=== PATIENT | male | born 1965 | race Caucasian/White ===

== ENCOUNTER 2021-12-21 19:57 | Emergency (ER) | payer OTHER, SELFPAY ==
[2021-12-21 20:01] VITALS: BP 161/86; PULSE 82; RESP 26; TEMP 36.7; O2SAT 100; BMI 30.1
--- NOTE | 2021-12-21 20:08 | DI.RAD.S_ITS ---
PROCEDURE: XR CHEST 1V INDICATIONS: chest pain TECHNIQUE: One view of the chest was acquired. COMPARISON: None. FINDINGS: Surgical changes and devices: None. Lungs and pleura: Left basilar opacity may be infiltrate or atelectasis. No pleural effusions or pneumothorax. Mediastinum: Mediastinal contours appear normal. Heart size is normal. Bones and chest wall: No suspicious bony lesions. Overlying soft tissues appear unremarkable. IMPRESSION: Left basilar infiltrate or atelectasis. Dictated by: Supriya Bowles M.D. on 12/21/2021 at 21:14 Approved by: Supriya Bowles M.D. on 12/21/2021 at 21:15
[2021-12-21 20:59] LABS: COVID19 -Nasal RAPID Negative (Negative)
[2021-12-21 21:13] LABS: Add Manual Diff / Slide Review NO; Basophils Absolute Auto 0 /uL (0-100); Basophils Percent Auto 0.5 % (0-2); Eosinophils Absolute Auto 0 /uL (0-450); Eosinophils Percent Auto 0.2 % (2-4); Hematocrit 47.6 % (41-53); Hemoglobin 16.7 g/dL (13.5-17.5); Lymphocytes Absolute Auto 1400 /uL (1100-4500); Lymphocytes Percent Auto 14.6 % (25-40); Mean Corpuscular HGB Conc 35.1 % (30-36); Mean Corpuscular Hemoglobin 31.5 PG (26-34); Mean Corpuscular Volume 89.6 fL (80-100); Monocytes Absolute Auto 500 /uL (0-900); Monocytes Percent Auto 4.9 % (3-14); Neutrophils Absolute Auto 7900 /uL (1500-7000); Neutrophils Percent Auto 79.8 % (50-75); Platelet Count 312 X10^3/uL (150-400); Red Blood Cell Count 5.31 X10^6/uL (4.5-5.9); White Blood Cell Count 9.9 X10^3/uL (4.5-11.0)
[2021-12-21 21:15] LABS: Alanine Aminotransferase 45 IU/L (<50); Albumin 4.9 g/dL (3.5-5.0); Albumin Globulin Ratio 1.4 (1.0-2.8); Alkaline Phosphatase 70 U/L (38-126); Aspartate Aminotransferase 41 IU/L (17-59); BUN Creatinine Ratio 12.1 (6-22); Bilirubin Total 0.8 mg/dL (0.2-1.3); Blood Urea Nitrogen 8 mg/dL (9-20); Calcium 9.3 mg/dL (8.4-10.2); Carbon Dioxide 23 mmol/L (22-32); Chloride 104 mmol/L (98-107); Creatine Kinase 80 U/L (55-170); Estimated Glomerular Filt Rate > 60.0 mL/min (>60); Globulin 3.6 g/dL (1.7-4.1); Glucose 127 mg/dL (70-100); HEMOLYSIS < 15 (0-50); Lipase 68 U/L (23-300); Magnesium 1.4 mg/dL (1.6-2.3); Potassium 3.6 mmol/L (3.4-5.1); Sodium 143 mmol/L (137-145); Total Protein 8.5 g/dL (6.3-8.2)
[2021-12-21 21:27] LABS: Troponin I < 0.012 ng/mL (0.01-0.034)
[2021-12-21 21:40] VITALS: BP 144/84; PULSE 100; RESP 18; O2SAT 93
[2021-12-21 22:17] VITALS: BP 142/78; PULSE 98; RESP 18; O2SAT 94
--- NOTE | 2021-12-21 22:27 | ED_ITS ---
HPI - Nausea/Vomiting/Diarrhea General Chief complaint: Nausea/Vomiting/Diarrhea Stated complaint: N/V/D Time Seen by Provider: 12/21/21 22:27 Source: patient Mode of arrival: EMS History of Present Illness HPI Narrative: 56-year-old gentleman with a history of fibromyalgia, anxiety, depression, panic, diabetes, hypertension, hyperlipidemia who notes that for the last 1-2 he has been feeling fatigued and ?under the weather?. He has noticed increasing nausea and has had a couple episodes of emesis. Was feeling weak and felt better lying prone on the bathroom floor. His insisted that he come to the ER for further evaluation. He has had similar episodes in the past he has had a negative cardiac workup in the past. He reports increasing stressors and overall anxiety. He has recently seen his primary care physician and blood pressure medications were slightly altered and he continues with hydrochlorothiazide in the morning and losartan as a new medication in the evening both of which seem to be doing fairly well. He reports no headaches, fevers, palpitations, chest pain or dyspnea. Related Data Previous Rx's Medication Instructions Recorded lorazepam 0.5 mg tablet (Ativan) 0.5 mg PO DAILY PRN #14 tab 12/22/21 ondansetron 4 mg disintegrating 4 mg PO Q8H PRN #20 tab 12/22/21 tablet Allergies Allergy/AdvReac Type Severity Reaction Status Date / Time Penicillins Allergy Verified 12/21/21 20:01 Review of Systems Review of Systems Narrative: Remainder of complete review of systems is otherwise unremarkable except for that included in the HPI. Patient History Medical History (Updated 12/22/21 @ 01:33 by Gabriela Leahy MD) Anxiety Depression Diabetes Fibromyalgia Hyperlipidemia Hypertension Social History Smoking Status: Former smoker Smoking Status: Former smoker alcohol intake frequency: 0-2 drinks per day Substance Use Type: does not use Exam Initial Vital Signs Initial Vital Signs: Vital Signs Temperature 98.0 F 12/21/21 20:01 Pulse Rate 82 12/21/21 20:01 Respiratory Rate 26 H 12/21/21 20:01 Blood Pressure 161/86 H 12/21/21 20:01 Pulse Oximetry 100 12/21/21 20:01 General: Mildly ill-appearing but in no acute distress. Able to give a complete and coherent history. HEENT: Moist mucous membranes, normal sclera with reactive pupils, Neck: No JVD, supple Respiratory: Lungs are clear to auscultation, no wheezing no rales no rhonchi. Full and symmetrical air movement Cardiac: Regular rate and rhythm no murmurs no bruits Abdomen: Soft, nontender, good bowel tones, no flank pain Skin: Warm, slightly flushed, no rashes Neurologic: Grossly neurologically intact with no obvious asymmetries or abnormalities Extremities: No trauma, well perfused Psych: Cooperative, appropriate insight and affect Course Orders Ordered: ED Orders 12/21/21 20:08 XR chest 1V Stat Complete Blood Count AUTO DIFF Stat Comprehensive Metabolic Panel Stat Lipase Stat Magnesium Stat Troponin & CK Cardiac Panel Stat EKG-12 Lead Stat 12/21/21 20:20 COVID19 -Nasal swab/Pre-Proc Stat 12/21/21 22:30 Ammonia (NH3) Stat Vital Signs Vital signs: Vital Signs - 8 hr 12/21/21 20:01 12/21/21 21:40 12/21/21 22:17 Temperature 98.0 F Pulse Rate 82 100 H 98 H Respiratory Rate 26 H 18 18 Blood Pressure 161/86 H 144/84 H 142/78 H Pulse Oximetry 100 93 94 12/21/21 22:30 Temperature Pulse Rate 98 H Respiratory Rate 17 Blood Pressure 145/88 H Pulse Oximetry 92 MDM - Nausea/Vomiting/Diarrhea Lab Data Result diagrams: 12/21/21 20:08 12/21/21 20:08 Labs: Lab Results 12/21/21 12/21/21 12/21/21 Range/Units 20:08 20:08 20:20 WBC 9.9 (4.5-11.0) X10^3/uL RBC 5.31 (4.5-5.9) X10^6/uL Hgb 16.7 (13.5-17.5) g/dL Hct 47.6 (41-53) % MCV 89.6 (80-100) fL MCH 31.5 (26-34) PG MCHC 35.1 (30-36) % RDW 12.0 (11.6-14.8) % Plt Count 312 (150-400) X10^3/uL Neut % (Auto) 79.8 H (50-75) % Lymph % (Auto) 14.6 L (25-40) % Calhoun % (Auto) 4.9 (3-14) % Eos % (Auto) 0.2 L (2-4) % Baso % (Auto) 0.5 (0-2) % Neut # (Auto) 7900 H (3011-4751) /uL Lymph # (Auto) 1400 (3786-4015) /uL Calhoun # (Auto) 500 (0-900) /uL Eos # (Auto) 0 (0-450) /uL Baso # (Auto) 0 (0-100) /uL Sodium 143 (137-145) mmol/L Potassium 3.6 (3.4-5.1) mmol/L Chloride 104 (98-107) mmol/L Carbon Dioxide 23 (22-32) mmol/L BUN 8 L (9-20) mg/dL Creatinine 0.66 (0.66-1.25) mg/dL Estimated GFR > 60.0 (>60) mL/min BUN/Creatinine Ratio 12.1 (6-22) Glucose 127 H (70-100) mg/dL Calcium 9.3 (8.4-10.2) mg/dL Magnesium 1.4 L (1.6-2.3) mg/dL Total Bilirubin 0.8 (0.2-1.3) mg/dL AST 41 (17-59) IU/L ALT 45 (<50) IU/L Alkaline Phosphatase 70 (38-126) U/L Ammonia (9-30) umol/L Total Creatine Kinase 80 (55-170) U/L CK-MB (CK-2) TNP CK-MB (CK-2) Rel Index TNP Troponin I < 0.012 (0.01-0.034) ng/mL Total Protein 8.5 H (6.3-8.2) g/dL Albumin 4.9 (3.5-5.0) g/dL Globulin 3.6 (1.7-4.1) g/dL Albumin/Globulin Ratio 1.4 (1.0-2.8) Lipase 68 (23-300) U/L SARS-CoV-2 (PCR) Negative (Negative) 12/21/21 Range/Units 22:30 WBC (4.5-11.0) X10^3/uL RBC (4.5-5.9) X10^6/uL Hgb (13.5-17.5) g/dL Hct (41-53) % MCV (80-100) fL MCH (26-34) PG MCHC (30-36) % RDW (11.6-14.8) % Plt Count (150-400) X10^3/uL Neut % (Auto) (50-75) % Lymph % (Auto) (25-40) % Calhoun % (Auto) (3-14) % Eos % (Auto) (2-4) % Baso % (Auto) (0-2) % Neut # (Auto) (2725-6618) /uL Lymph # (Auto) (9008-0648) /uL Calhoun # (Auto) (0-900) /uL Eos # (Auto) (0-450) /uL Baso # (Auto) (0-100) /uL Sodium (137-145) mmol/L Potassium (3.4-5.1) mmol/L Chloride (98-107) mmol/L Carbon Dioxide (22-32) mmol/L BUN (9-20) mg/dL Creatinine (0.66-1.25) mg/dL Estimated GFR (>60) mL/min BUN/Creatinine Ratio (6-22) Glucose (70-100) mg/dL Calcium (8.4-10.2) mg/dL Magnesium (1.6-2.3) mg/dL Total Bilirubin (0.2-1.3) mg/dL AST (17-59) IU/L ALT (<50) IU/L Alkaline Phosphatase (38-126) U/L Ammonia < 9 L (9-30) umol/L Total Creatine Kinase (55-170) U/L CK-MB (CK-2) CK-MB (CK-2) Rel Index Troponin I (0.01-0.034) ng/mL Total Protein (6.3-8.2) g/dL Albumin (3.5-5.0) g/dL Globulin (1.7-4.1) g/dL Albumin/Globulin Ratio (1.0-2.8) Lipase (23-300) U/L SARS-CoV-2 (PCR) (Negative) Imaging Data Chest x-ray: Radiologist's Impression: FINDINGS:? ? Surgical changes and devices:? None.? ? Lungs and pleura:? Left basilar opacity may be infiltrate or atelectasis.? No pleural effusions or pneumothorax.? ? Mediastinum:? Mediastinal contours appear normal.? Heart size is normal.? ? Bones and chest wall:? No suspicious bony lesions.? Overlying soft tissues appear unremarkable.? ? IMPRESSION:? Left basilar infiltrate or atelectasis. ? ? Dictated by: Supriya Bowles M.D. on 12/21/2021 at 21:14 ?? MDM Narrative Medical decision making narrative: 56-year-old gentleman with increasing stressors 2 days of general malaise vomiting and weakness. Lab workup is reassuring. No evidence of infection. Chest x-ray suggests a left basilar infiltrate or atelectasis and clinical exam does not confirm rhonchi or abnormalities of the left face. Feels significantly improved after Zofran and a L of fluid. We discussed nausea medication to have at home as well as anxiety medication to help with the increased anxiety and panic sensations that he has been having recently secondary to stressors. I did strongly recommend that he follow-up with his primary care physician. He may benefit from increasing his Cymbalta. Will give him a brief prescription of Ativan to use for increase immediate stressors. There is no evidence of surgical abdomen, pancreatitis or gallbladder disease at this time. No evidence of acute coronary syndrome. He is safe for home discharge Discharge Plan Departure Patient Disposition: Home Clinical Impression: Anxiety Nausea & vomiting Qualifiers: Vomiting type: unspecified Vomiting Intractability: non-intractable Qualified Code(s): R11.2 - Nausea with vomiting, unspecified Hypertension Qualifiers: Hypertension type: primary hypertension Qualified Code(s): I10 - Essential (primary) hypertension Instructions: DI for Anxiety -- Adult, DI for Nausea -- Adult Activity Restrictions/Additional Instructions: Thank you for coming in today Your workup was very reassuring. There is no evidence of severe infection, pneumonia, heart attack issues or stroke. While you may have a virus causing the anxiety it is entirely possible that the recent increased stressors are also creating problems. I have given you a prescription for Zofran to help with the nausea. Have also given you a small prescription of Ativan to help with anxiety. Frequently more appropriately treating your depression can help with anxiety. Your symptoms are not just ?psychosomatic? and deserve to be appropriately treated. Please schedule an appointment to talk to Dr. Felix about your blood pressure, your mood and your increased anxiety. If you have worsening symptoms please return to the emergency department Prescriptions: New ondansetron 4 mg tablet,disintegrating 4 mg PO Q8H PRN (Reason: nausea and vomiting) Qty: 20 0RF lorazepam [Ativan] 0.5 mg tablet 0.5 mg PO DAILY PRN (Reason: anxiety) Qty: 14 0RF
[2021-12-21 22:30] VITALS: BP 145/88; PULSE 98; RESP 17; O2SAT 92
[2021-12-21] MEDS: ONDANSETRON 4 MG/2 ML INJ (22:41)
[2021-12-21 23:18] LABS: Ammonia (NH3) < 9 umol/L (9-30)
[2021-12-22 01:00] VITALS: BP 170/95; PULSE 87; RESP 16; O2SAT 92
[2021-12-22 01:30] VITALS: BP 152/92; PULSE 84; RESP 18; O2SAT 94
[2021-12-22] MEDS: ONDANSETRON 4 MG/2 ML INJ IV (01:40)
[2021-12-22] MEDS: LORazepam 2 MG/ML INJ 0.5 MG IV (01:40)
[2021-12-22 02:00] VITALS: BP 136/98; PULSE 92; RESP 16; O2SAT 94
== END 2021-12-22 02:19 | disposition home or self-care (01) ==
PROVIDERS: Emergency Provider Emergency Medicine
DX: F41.9 Anxiety disorder, unspecified (principal); R11.2 Nausea with vomiting, unspecified; I10 Essential (primary) hypertension; Z87.891 Personal history of nicotine dependence; Z20.822 Contact with and (suspected) exposure to COVID-19
CPT/HCPCS: 71045; 80053; 82140; 82550; 83690; 83735; 84484; 85025; 87635; 93005; 93010; 96374; 96375; 99284; C9803; J2060; J2405